=== PATIENT | male | born 1950 | race Caucasian/White ===

== ENCOUNTER 2023-05-19 16:22 | Emergency (ER) | payer MEDICARE ==
[~2023-05-19] VITALS: Ht 177.8 cm; Wt 79.4 kg
[2023-05-19 16:58] VITALS: BP 148/83
== END 2023-05-19 20:28 | disposition home or self-care (01) ==
LOC: ER 16:22
DX: S80.02XA Contusion of left knee, initial encounter (principal); E03.9 Hypothyroidism, unspecified; W22.8XXA Striking against or struck by other objects, initial encounter
CPT/HCPCS: 73562-LT; 99284-25; A9270